=== PATIENT | male | born 1990 | race American Indian/Alaskan Native ===

== ENCOUNTER 2021-04-06 10:30 | Emergency (ER) | payer SELFPAY ==
[2021-04-06 10:58] VITALS: BP 128/78
--- NOTE | 2021-04-06 11:15 | Emergency Department Report ---
Chief Complaint: Urogenital-Male Stated Complaint: POSS STD Time Seen by Provider: 04/06/21 11:02 - Exam Vital Signs: Vital Signs 04/06/21 10:53 Temperature 98.3 F Pulse Rate 76 Respiratory 20 Rate Blood Pressure 128/78 [Right] O2 Sat by Pulse 99 Oximetry MSE screening note: Focused history and physical exam performed. Due to findings the following was ordered: ED Disposition for MSE Clinical Impression: Concern about STD in male without diagnosis Disposition: MED SCREENING EXAM-LEFT Is pt being admited?: No Does the pt Need Aspirin: No Condition: Stable Referrals: ANGEL VENTURA MD [Staff Physician] - 3-5 Days Time of Disposition: 11:10
--- NOTE | 2021-04-06 11:17 | Emergency Department Report ---
ED Dysuria HPI - HPI Chief Complaint: Urogenital-Male Stated Complaint: POSS STD Time Seen by Provider: 04/06/21 11:02 Duration: Today Severity: None Symptoms: Dysuria: No, Frequency: No, Suprapubic Pain: No, Flank Pain: No, Fever: No, Hematuria: No, Abdominal Pain: No, Previous UTI's: No Other History: Patient is a 30-year-old -[place] male that comes to the emergency room today because his girlfriend who is with his child has trichomonas. He lives with her. The patient went to her [facility] today and was diagnosed. They recommended that the patient be treated. He is having no symptoms. ED Review of Systems ROS: Stated complaint: POSS STD Other details as noted in HPI Comment: All other systems reviewed and negative ED Past Medical Hx - Past Medical History Previous Medical History?: No - Surgical History Past Surgical History?: No - Family History Family history: no significant - Social History Smoking Status: Never Smoker Substance Use Type: None - Medications Home Medications: Home Medications Medication Instructions Recorded Confirmed Last Taken Type metroNIDAZOLE [Flagyl] 2,000 mg PO ONCE #4 tab 04/06/21 Unknown Rx Dysuria Exam - Exam General: Vital signs noted. No distress. Alert and acting appropriately. Exam: Yes Moist Mucous Membranes, No CVA Tenderness, No Abdominal Tenderness, No Rigidity or Guarding ED Course Vital Signs 04/06/21 10:53 Temperature 98.3 F Pulse Rate 76 Respiratory 20 Rate Blood Pressure 128/78 [Right] O2 Sat by Pulse 99 Oximetry ED Medical Decision Making - Medical Decision Making Known exposure to trichomonas and his live-in girlfriend. Given the risk to the fetus I have empirically treated the patient for the trichomonas with a prescription For 2 g of Flagyl. Patient verbalizes understanding of safe sex and need to protect the fetus. Patient is ambulatory, [id number] afebrile on discharge. Vital Signs 04/06/21 10:53 Temperature 98.3 F Pulse Rate 76 Respiratory 20 Rate Blood Pressure 128/78 [Right] O2 Sat by Pulse 99 Oximetry - Differential Diagnosis Exposure to STD Critical care attestation.: If time is entered above; I have spent that time in minutes in the direct care of this critically ill patient, excluding procedure time. ED Disposition Clinical Impression: Concern about STD in male without diagnosis, STD exposure Disposition: DC-01 TO HOME OR SELFCARE Is pt being admited?: No Does the pt Need Aspirin: No Condition: Stable Prescriptions: metroNIDAZOLE [Flagyl] 2,000 mg PO ONCE #4 tab Referrals: ANGEL VENTURA MD [Staff Physician] - 3-5 Days Forms: Work/School Release Form(ED) Time of Disposition: 11:16
== END 2021-04-06 11:41 | disposition home or self-care (01) ==
LOC: ED 10:30
DX: Z20.2 Contact with and (suspected) exposure to infections with a predominantly sexual mode of transmission (principal); Z88.0 Allergy status to penicillin; Z79.899 Other long term (current) drug therapy
CPT/HCPCS: 99282